=== PATIENT | female | born 1995 | race African-American/Black ===

== ENCOUNTER 2022-02-07 20:02 | Outpatient (RCR) ==
[~2022-02-07 20:02] MED LIST: AMOXICILLIN 50500 MG PO; CEPHALEXIN500 M1 PO; CRYSELLE 30 MCG1 TAB PO; GLUCOPHAGE500 MG/TAB PO; K-DUR 10 MEQ T10 MEQ PO; MULTI VITAMINS1 TAB PO; TEMOVATE0.05% TOP; VITAMIN B12 781 TAB
== END 2022-02-27 ==
LOC: COL.LAB
DX: Z01.89 Encounter for other specified special examinations (principal)